=== PATIENT | female | born 1955 | race Asian ===

== ENCOUNTER 2021-05-17 11:11 | Day surgery (SDC) | payer BC ==
[~2021-05-17] VITALS: Ht 160 cm; Wt 68.2 kg
[2021-05-17 11:49] VITALS: BP 141/62; PULSE 62; TEMP 97.5
[2021-05-17] MEDS ORDERED: SYNTHROID0.05 MG/TA PO (11:51)
[2021-05-17 13:48] VITALS: BP 134/67; PULSE 55; TEMP 97.2
--- NOTE | 2021-05-17 13:48 | NUR ---
The patient arrived back to [facility] from the operating room at this time. The patient appears alert and oriented and denies any pain or nausea at this time. Post operative vital signs were started at this time. Surgical glue in place to right neck and upper chest incisions which appear without redness or edema. The patient was given a water bottle she brought with her at her request.
[2021-05-17 14:03] VITALS: BP 130/65; PULSE 57
--- NOTE | 2021-05-17 14:03 | NUR ---
The patient appears to be resting comfortably on the cart this time. The patient continues to deny any pain or nausea at this time.
[2021-05-17] MEDS ORDERED: NORCO 325 MG-51 TAB PO (14:07)
[2021-05-17 14:18] VITALS: BP 134/72; PULSE 53
--- NOTE | 2021-05-17 14:18 | NUR ---
The patient appears to be tolerating the water well. The patient's vital signs appear stable.
[2021-05-17 14:33] VITALS: BP 146/70; PULSE 54
--- NOTE | 2021-05-17 14:33 | NUR ---
The patient voices a desire to be discharged home. Her son was called to come pick her up. Discharge instructions were reviewed with the patient at this time. She verbalized understanding and has no questions for the nurse at this time. The patient's IV to her right hand was removed and a pressure dressing was applied to the site. The nurse instructed the patient to get dressed and notify the staff when she is ready to be escorted out.
--- NOTE | 2021-05-17 14:43 | NUR ---
The patient was escorted out via wheelchair to a private vehicle by MACI Mike. The patient's belongings and discharge paperwork were sent with her. The patient's son is present to drive her home.
== END 2021-05-17 14:43 | disposition home or self-care (01) ==
LOC: SDCO 11:11
DX: C50.919 Malignant neoplasm of unspecified site of unspecified female breast (principal); E07.9 Disorder of thyroid, unspecified; F32.A Depression, unspecified; Z79.890 Hormone replacement therapy; Z90.13 Acquired absence of bilateral breasts and nipples; Z90.710 Acquired absence of both cervix and uterus; Z90.49 Acquired absence of other specified parts of digestive tract
CPT/HCPCS: C1788; J0690; J1644; J2405; J2704; J3010; J7120

== ENCOUNTER → 2021-05-24 | Outpatient (CLI) | payer BC ==
[~2021-05-24] MED LIST: NORCO 325 MG-51 TAB PO; SYNTHROID0.05 MG/TA PO
== END ==
LOC: COL.VAS 09:41
DX: C50.412 Malignant neoplasm of upper-outer quadrant of left female breast (principal); I35.0 Nonrheumatic aortic (valve) stenosis